=== PATIENT | male | born 1985 | race American Indian/Alaskan Native ===

== ENCOUNTER 2017-03-05 00:44 | Emergency (ER) | payer MEDICAID, OTHER ==
[2017-03-05 00:44] VITALS: BMI 23.7
[2017-03-05 00:51] VITALS: BP 109/66; PULSE 68; RESP 18; TEMP 97.9; O2SAT 100
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
--- NOTE | 2017-03-05 13:19 | RAD ---
PROCEDURE: Cervical Spine Radiographs. HISTORY: Pain. COMPARISON: None. FINDINGS: BONES: There is mild levocurvature in the cervical spine. There is straightening of the cervical spine with loss of normal cervical lordosis. There is normal alignment of the cervical vertebral bodies. There is no acute fracture or spondylolisthesis. The craniocervical junction is normal. The atlantoaxial joint is normal. DISC SPACES: There is mild anterior spurring in the lower cervical vertebral bodies. The disc heights are maintained. SOFT TISSUES: Normal. No prevertebral soft tissue swelling. OTHER FINDINGS: None. IMPRESSION: No acute fracture or spondylolisthesis. Straightening of the cervical spine may be positional or related to muscle spasm.
== END 2017-03-05 03:23 | disposition home or self-care (01) ==
LOC: H.ER 00:44
DX: M54.2 Cervicalgia (principal); F19.10 Other psychoactive substance abuse, uncomplicated